=== PATIENT | male | born 1935 | race Caucasian/White ===

== ENCOUNTER 2016-04-30 11:40 | Emergency (ER) | payer OTHER ==
[~2016-04-30] VITALS: Ht 182.9 cm; Wt 79.8 kg
[~2016-04-30 11:40] MED LIST: ALDACTONE25 MG PO; APIDRA100 UNIT/1 SC; ASPIR-LOW81 MG PO; BICALUTAMIDE50 MG PO; CALCIUM 600 +1 EA12 PO; CALCIUM CARB1 TABLET PO; CENTRUM SILVER1 EAC3 PO; CLARITIN10 MG PO; COUMADIN1 MG PO; DIGITEK125 MC2 PO; DRONABINOL2.5 MG PO; FUROSEMIDE40 MG PO; GLUCAGEN1 MG IM/SC; GLUCOPHAGE1000 MG PO; INVOKANA100 MG PO; LASIX40 MG PO; LEVAQUIN750 MG PO; LEVEMIR FL100 UNIT/1 SC; LEVEMIR100 UNIT/2 SC; LISINOPRIL10 MG PO; LO-DOSE ASPIRIN81 M1 PO; LOW DOSE ASPIRI81 M1 PO; MEN'S MULTI-VI1 EACH PO; METFORMIN HCL1000 MG PO; METOPROLOL SUCC25 MG PO; METOPROLOL SUCC50 MG PO; NOVOLOG 10100 UNITS/ SC; NOVOLOG PE100 UNITS/ SC; OXYCODONE HCL15 MG PO; OXYCODONE HCL5 MG PO; PHENERGAN-CODE120 ML PO; PRAVASTATIN SOD80 MG PO; PREDNISONE5 MG PO; PRINIVIL10 MG PO; PROAIR HFA8.5 GM IH; ROXICODONE5 MG PO; SIMVASTATIN40 MG PO; SOTALOL80 MG PO; SPIRONOLACTONE25 MG PO; TOPROL XL100 MG PO; TOPROL XL25 MG PO; TOPROL XL50 MG PO; TRAMADOL HCL50 MG PO; ULTRAM50 MG PO; VITAMIN B-122500 MCG SL; XARELTO20 MG PO; XTANDI40 MG PO; ZETIA10 MG PO; ZOCOR40 MG PO; ZOLOFT50 MG PO; ZYTIGA250 MG PO
[2016-04-30 12:56] LABS: HEMATOCRIT 43.1 % (38.0-50.0); MCH 28.8 PG (29.0-34.0); MCHC 33.6 G/DL (30.0-36.0); MCV 85.7 FL (86-99); MEAN PLAT.VOLUME 9.7 uM^3 (9.0-12.4); PLATELET COUNT 259 K/uL (156-360); RBC DIS.WIDTH-CV 12.6 % (11.8-14.6); RBC DIS.WIDTH-SD 38.8 % (39-53); RED BLOOD COUNT 5.03 M/uL (4.00-5.50); WHITE BLOOD COUNT 7.3 K/uL (4.1-10.2)
[2016-04-30 13:05] LABS: INTER. NORMALIZED RATIO 1.3; PROTHROMBIN TIME 13.2 (9.2-11.2); PTT 30.6 (25-32)
[2016-04-30 13:07] LABS: CHLORIDE 97 mEq/L (99-109); POTASSIUM 4.8 mEq/L (3.7-5.4); SODIUM 135 mEq/L (136-147)
[2016-04-30 13:09] LABS: GLUCOSE 152 mg/dL (70-99)
[2016-04-30 13:11] LABS: ANION GAP 13 MEQ/L (2-14); TOTAL BILIRUBIN 0.6 mg/dL (0.0-1.0)
[2016-04-30 13:13] LABS: ALKALINE PHOSPHATASE 256 IU/L (3-129); GFR ESTIMATE (CALCULATED) > 59 mL/min/
[2016-04-30 13:14] LABS: UREA NITROGEN (BUN) 26 mg/dL (9-23)
[2016-04-30 13:16] LABS: LIPASE 13 U/L (1.0-51.0)
[2016-04-30 13:17] LABS: TROP-I INTERPRETATION NEGATIVE; TROPONIN-I < 0.01 ng/mL (0.0-0.30)
[2016-04-30 13:40] LABS: INFLUENZA A VIRAL ANTIGEN NEGATIVE; INFLUENZA B VIRAL ANTIGEN NEGATIVE
[2016-04-30 14:15] LABS: INTERNAL CONTROL VALID? YES; MONOSPOT (MONONUCLEOSIS SEROL) NEGATIVE
[2016-04-30 14:39] LABS: ADD MIUA? NO; BILIRUBIN NEGATIVE; BLOOD NEGATIVE; COLOR YELLOW ((YELLOW)); GLUCOSE (STRIP) NEGATIVE; KETONES 5; LEUKOCYTES NEGATIVE; NITRITE NEGATIVE; PROTEIN (STRIP) NEGATIVE; SPECIFIC GRAVITY 1.014 (1.000-1.030); UROBILINOGEN 0.2 MG/DL (0.2-1.0)
[2016-04-30] MEDS ORDERED: ZOFRAN ODT8 MG PO (16:30)
[2016-04-30 16:48] VITALS: BP 107/61
== END 2016-04-30 16:50 | disposition home or self-care (01) ==
LOC: EME 11:40 → RME 12:14
PROVIDERS: Emergency Medicine; Physician Assistant
DX: R53.1 Weakness (principal); E11.9 Type 2 diabetes mellitus without complications; E78.5 Hyperlipidemia, unspecified; I10 Essential (primary) hypertension; Z85.46 Personal history of malignant neoplasm of prostate; Z95.0 Presence of cardiac pacemaker; Z88.6 Allergy status to analgesic agent
CPT/HCPCS: 71020; 74020; 80053; 81003; 83605; 83690; 84484; 85025; 85027; 85610; 85730; 86308; 87502; 93005; 99281; 99285; J2405; J7030